=== PATIENT | female | born 2000 | race Caucasian/White ===

== ENCOUNTER 2020-09-22 14:23 | Emergency (ER) | payer SELFPAY ==
[~2020-09-22] VITALS: Ht 160 cm; Wt 80.0 kg
[2020-09-22 14:25] VITALS: BP 134/88
[2020-09-22 14:50] LABS: BASOPHILS % 0.2 % (0.0-2.0); EOSINOPHILS % 0.1 % (0.0-5.0); HEMATOCRIT. 32.9 % (36.0-48.0); HEMOGLOBIN. 11.2 g/dL (12.0-16.0); LYMPHOCYTES % 11.4 % (20.0-50.0); MEAN CORPUSCULAR HEMOGLOBIN 29.1 pg (28.0-32.0); MEAN CORPUSCULAR VOLUME 85.8 fL (81.0-99.0); NEUTROPHILS % 84.3 % (40.0-76.0); PLATELET 296 x1000/uL (130-400); RED BLOOD CELL COUNT 3.84 mill/uL (4.2-5.4); RED CELL DISTRIBUTION WIDTH 15.5 % (11.6-14.6)
[2020-09-22 14:58] LABS: CHLORIDE 105 mEq/L (98-107)
[2020-09-22 15:00] LABS: PROTHROMBIN TIME 10.3 sec (9.6-11.0)
[2020-09-22] MEDS ORDERED: SODIUM CHLORIDE 0.9% 1,000 ML IV ONE (15:00)
[2020-09-22] MEDS ORDERED: ONDANSETRON HCL 4MG/2ML INJ IV ONE (15:00)
[2020-09-22 15:07] LABS: HCG SCREEN POSITIVE
== END 2020-09-22 15:52 | disposition left against medical advice (07) ==
LOC: ER 14:23
DX: R11.10 Vomiting, unspecified (principal); Z32.01 Encounter for pregnancy test, result positive
CPT/HCPCS: 36415; 80053; 84703; 85025; 99283

== ENCOUNTER 2020-11-02 08:21 | Emergency (ER) | payer SELFPAY ==
[~2020-11-02] VITALS: Ht 160 cm; Wt 68.0 kg
[2020-11-02] MEDS ORDERED: ONDANSETRON HCL 4MG/2ML INJ IV ONE ×2 (09:30→10:45)
[2020-11-02 10:16] LABS: HEMATOCRIT. 34.6 % (36.0-48.0); HEMOGLOBIN. 11.8 g/dL (12.0-16.0); MEAN CORPUSCULAR HEMOGLOBIN 29.9 pg (28.0-32.0); MEAN CORPUSCULAR VOLUME 88.2 fL (81.0-99.0); MEAN PLATELET VOLUME 10.6 fl (7.4-10.4); PLATELET 265 x1000/uL (130-400); RED BLOOD CELL COUNT 3.93 mill/uL (4.2-5.4); RED CELL DISTRIBUTION WIDTH 15.5 % (11.6-14.6)
[2020-11-02 10:23] LABS: CHLORIDE 105 mEq/L (98-107)
[2020-11-02 10:49] LABS: B-HCG QUANTITATIVE 19575 mIU/mL (<3)
[2020-11-02] MEDS ORDERED: SODIUM CHLORIDE 0.9% 1,000 ML IV ONE (11:00)
[2020-11-02 11:01] LABS: CLARITY URINE CLEAR (CLEAR); COLOR URINE YELLOW (YELLOW); KETONES URINE 1+ (NEGATIVE); LEUKOCYTE ESTERASE URINE NEGATIVE (NEGATIVE); NITRITE URINE NEGATIVE (NEGATIVE); OCCULT BLOOD URINE NEGATIVE (NEGATIVE); PH URINE >=9.0 (4.5-8.0); PROTEIN URINE TRACE (NEGATIVE); SPECIFIC GRAVITY URINE 1.019 (1.005-1.030); UROBILINOGEN URINE 0.2 E.U./dL (0.2-1.0)
[2020-11-02] MEDS ORDERED: ONDA4TAB5 PO (11:43)
[2020-11-02 12:05] LABS: PLATELET ESTIMATE NORMAL
[2020-11-02] MEDS ORDERED: DIPHENHYDRAMINE 50MG/ML VIAL IV ONE (12:30)
[2020-11-02] MEDS ORDERED: METOCLOPRAMIDE HCL 10MG/2ML VIAL IV ONE (12:30)
[2020-11-02 13:00] VITALS: BP 149/74
== END 2020-11-02 13:10 | disposition home or self-care (01) ==
LOC: ER 08:31
DX: O21.2 Late vomiting of pregnancy (principal); Z3A.22 22 weeks gestation of pregnancy
CPT/HCPCS: 36415; 76805; 80053; 81003; 84702; 85025; 86850; 86900; 86901; 96361; 96374; 96375; 96376; 99284; J1200; J2405; J2765; J7030

== ENCOUNTER 2020-12-06 04:35 | Observation (INO) | payer SELFPAY ==
[~2020-12-06] VITALS: Ht 154.9 cm; Wt 65.8 kg
[~2020-12-06 04:35] MED LIST: ONDA4TAB5 PO
[2020-12-06] MEDS ORDERED: LACTATED RINGERS 1,000 ML IV SCH (05:00)
[2020-12-06] MEDS: ONDANSETRON HCL 4MG/2ML INJ IV PRN ×2 (05:35→11:47)
[2020-12-06 05:54] LABS: CLARITY URINE TURBID (CLEAR); COLOR URINE YELLOW (YELLOW); KETONES URINE NEGATIVE (NEGATIVE); LEUKOCYTE ESTERASE URINE 1+ (NEGATIVE); NITRITE URINE NEGATIVE (NEGATIVE); OCCULT BLOOD URINE NEGATIVE (NEGATIVE); PH URINE 8.5 (4.5-8.0); PROTEIN URINE TRACE (NEGATIVE); SPECIFIC GRAVITY URINE 1.014 (1.005-1.030)
[2020-12-06 05:55] LABS: BASOPHILS % 0.1 % (0.0-2.0); EOSINOPHILS % 0.1 % (0.0-5.0); HEMOGLOBIN. 10.2 g/dL (12.0-16.0); LYMPHOCYTES % 12.7 % (20.0-50.0); MEAN CORPUSCULAR HEMOGLOBIN 29.1 pg (28.0-32.0); MEAN CORPUSCULAR VOLUME 85.2 fL (81.0-99.0); MEAN PLATELET VOLUME 10.3 fl (7.4-10.4); MONOCYTES % 4.1 % (2.0-8.0); PLATELET 271 x1000/uL (130-400); RED BLOOD CELL COUNT 3.52 mill/uL (4.2-5.4); RED CELL DISTRIBUTION WIDTH 16.3 % (11.6-14.6)
[2020-12-06 06:02] LABS: CHLORIDE 105 mEq/L (98-107)
[2020-12-06 06:06] LABS: *AMPHETAMINES SCREEN URINE NEGATIVE (NEGATIVE); *BARBITURATES SCREEN URINE NEGATIVE (NEGATIVE); *BENZODIAZEPINES SCREEN URINE NEGATIVE (NEGATIVE); *COCAINE SCREEN URINE NEGATIVE (NEGATIVE)
[2020-12-06 06:07] LABS: METHADONE URINE SCREEN NEGATIVE (NEGATIVE); OPIATES URINE SCREEN NEGATIVE (NEGATIVE); PHENCYCLIDINE URINE SCREEN NEGATIVE (NEGATIVE)
[2020-12-06 06:10] LABS: CANNABINOID URINE SCREEN PRESUMTIVE POSITIVE (NEGATIVE)
[2020-12-06] MEDS ORDERED: KCL 20MEQ/100ML PREMIX 100 ML IV NR ×2 (09:15→10:00)
[2020-12-06] MEDS ORDERED: CITRIC ACID/SODIUM CITRATE SOLN 15ML UDC PO NR (10:00)
[2021-02-02] MEDS ORDERED: IBUP-2030 PO (18:36)
== END 2020-12-06 13:30 | disposition home or self-care (01) ==
LOC: 8 EST LDRP 04:35
PROVIDERS: ADMIT Obstetrics & Gynecology; ATTEND Obstetrics & Gynecology
DX: O21.2 Late vomiting of pregnancy (principal); O99.283 Endocrine, nutritional and metabolic diseases complicating pregnancy, third trimester; E87.6 Hypokalemia; Z3A.28 28 weeks gestation of pregnancy
CPT/HCPCS: 36415; 76805; 76818; 80053; 80305; 81003; 84550; 85025; 96360; 96361; C1893; G0378; J2405; J3480; 80349; 96365; 96366; 99281; J7120

== ENCOUNTER 2021-01-31 20:06 | Inpatient (IN) | payer SELFPAY ==
[~2021-01-31] VITALS: Ht 154.9 cm; Wt 68.0 kg
[2021-01-31] MEDS ORDERED: NALOXONE HCL 0.4 MG/ML 1ML VIAL IM PRN (20:45)
[2021-01-31] MEDS ORDERED: CARBOPROST TROMETHAMINE 250 MCG/ML AMPUL IM PRN (20:45)
[2021-01-31] MEDS ORDERED: METHYLERGONOVINE MALEATE 0.2 MG/ML IM PRN (20:45)
[2021-01-31] MEDS ORDERED: LIDOCAINE HCL 1% 20ML VIAL (Pyxis) INJ INFIL SCH (20:45)
[2021-01-31] MEDS ORDERED: PNV1TABL76 PO (20:46)
[2021-01-31] MEDS: LACTATED RINGERS 1,000 ML IV SCH ×2 (20:55→22:27)
[2021-01-31] MEDS ORDERED: BUTORPHANOL TARTRATE 2 MG/ML VIAL IV PRN (21:00)
[2021-01-31 21:45] LABS: BASOPHILS % 0.2 % (0.0-2.0); EOSINOPHILS % 0.8 % (0.0-5.0); HEMATOCRIT. 29.4 % (36.0-48.0); HEMOGLOBIN. 9.9 g/dL (12.0-16.0); LYMPHOCYTES % 19.4 % (20.0-50.0); MEAN CORPUSCULAR HEMOGLOBIN 27.6 pg (28.0-32.0); MEAN CORPUSCULAR VOLUME 81.8 fL (81.0-99.0); MEAN PLATELET VOLUME 10.5 fl (7.4-10.4); MONOCYTES % 5.4 % (2.0-8.0); NEUTROPHILS % 74.2 % (40.0-76.0); PLATELET 226 x1000/uL (130-400); RED CELL DISTRIBUTION WIDTH 17.8 % (11.6-14.6)
[2021-01-31 21:48] LABS: CLARITY URINE CLOUDY (CLEAR); COLOR URINE YELLOW (YELLOW); KETONES URINE NEGATIVE (NEGATIVE); LEUKOCYTE ESTERASE URINE TRACE (NEGATIVE); NITRITE URINE NEGATIVE (NEGATIVE); OCCULT BLOOD URINE 2+ (NEGATIVE); PROTEIN URINE TRACE (NEGATIVE); SPECIFIC GRAVITY URINE 1.027 (1.005-1.030)
[2021-01-31 21:53] LABS: INR 0.9; PARTIAL THROMBOPLASTIN TIME 30.5 sec (23.4-31.0); PROTHROMBIN TIME 9.4 sec (9.6-11.0)
[2021-01-31] MEDS ORDERED: PENICILLIN G POTASSIUM 5 MMU in DEXT 5% WATER 100 ML IV NR (22:00)
[2021-01-31 22:14] LABS: *BARBITURATES SCREEN URINE NEGATIVE (NEGATIVE); *BENZODIAZEPINES SCREEN URINE NEGATIVE (NEGATIVE); *COCAINE SCREEN URINE NEGATIVE (NEGATIVE); METHADONE URINE SCREEN NEGATIVE (NEGATIVE); OPIATES URINE SCREEN NEGATIVE (NEGATIVE)
[2021-01-31 22:15] LABS: PHENCYCLIDINE URINE SCREEN NEGATIVE (NEGATIVE)
[2021-01-31 22:22] LABS: CANNABINOID URINE SCREEN PRESUMTIVE POSITIVE (NEGATIVE)
[2021-01-31 22:25] LABS: *AMPHETAMINES SCREEN URINE PRESUMTIVE POSITIVE (NEGATIVE)
[2021-01-31 22:34] LABS: HEPATITIS B SURFACE ANTIGEN NEGATIVE
[2021-01-31] MEDS: DEXT 5%/LR + PITOCIN 20UNITS/L 1,000 ML IV SCH (22:38)
[2021-01-31] MEDS ORDERED: ROPIVACAINE HCL/PF EPIDURAL 200 ML EPI SCH (22:45)
[2021-01-31] MEDS ORDERED: FENTANYL CITRATE/PF 50MCG/ML 2ML VIAL ONE (22:56)
[2021-01-31] MEDS ORDERED: ROPIVACAINE HCL/PF EPIDURAL 200 ML EPI ONE (22:56)
[2021-02-01] MEDS ORDERED: PENICILLIN G POTASSIUM 2.5 MMU in DEXTROSE 5% WATER 50 ML IV SCH (02:00)
[2021-02-01] MEDS: DEXT 5%/LR + PITOCIN 20UNITS/L 1,000 ML IV SCH (02:55)
[2021-02-01] MEDS ORDERED: BENZOCAINE/LANOLIN/ALOE VERA SPRAY TOP PRN (03:15)
[2021-02-01] MEDS ORDERED: DEXT 5%/LR + PITOCIN 20UNITS/L 1,000 ML IV SCH (03:15)
[2021-02-01] MEDS ORDERED: BISACODYL 10MG SUPP PR PRN (03:15)
[2021-02-01] MEDS ORDERED: LANOLIN OINT 7GM TUBE TOP PRN (03:15)
[2021-02-01] MEDS ORDERED: DIPHENHYDRAMINE 25MG CAPSULE PO PRN (03:15)
[2021-02-01] MEDS ORDERED: IBUPROFEN 400MG TABLET PO PRN (03:15)
[2021-02-01] MEDS ORDERED: HEMORRHOIDAL SUPP PR PRN (03:15)
[2021-02-01] MEDS ORDERED: RHO(D) IMMUNE GLOBULIN 300 MCG/SYR IM PRN (03:15)
[2021-02-01 03:40] VITALS: BP 136/94
[2021-02-01] MEDS: IBUPROFEN 800MG TABLET PO PRN ×3 (03:43→15:45)
[2021-02-01 04:10] VITALS: BP 139/89
[2021-02-01 04:45] VITALS: BP 125/81
[2021-02-01 07:30] VITALS: BP 147/88
[2021-02-01] MEDS: PRENATAL VIT/FE FUMARATE/FA TABLET PO SCH (08:12)
[2021-02-01] MEDS: MAGNESIUM/ALUMINUM HYDROXIDE/SIMETHICONE 30ML UDC PO SCH ×3 (08:12→21:11)
[2021-02-01] MEDS: SIMETHICONE 80MG TABLET CHEW PO SCH ×4 (08:12→21:11)
[2021-02-01 16:01] VITALS: BP 148/78
[2021-02-01] MEDS: ACETAMINOPHEN WITH CODEINE 300/30MG TABLET PO PRN ×2 (18:12→21:12)
[2021-02-01 20:00] VITALS: BP 100/62
[2021-02-01] MEDS ORDERED: DOCUSATE SODIUM 100MG CAPSULE PO SCH (21:00)
[2021-02-02 04:00] VITALS: BP 124/74
[2021-02-02] MEDS: ACETAMINOPHEN WITH CODEINE 300/30MG TABLET PO PRN ×2 (04:05→16:28)
[2021-02-02 06:40] LABS: BASOPHILS % 0.4 % (0.0-2.0); EOSINOPHILS % 1.1 % (0.0-5.0); HEMATOCRIT. 29.7 % (36.0-48.0); HEMOGLOBIN. 9.6 g/dL (12.0-16.0); LYMPHOCYTES % 35.7 % (20.0-50.0); MEAN CORPUSCULAR HEMOGLOBIN 26.7 pg (28.0-32.0); MEAN CORPUSCULAR VOLUME 82.5 fL (81.0-99.0); MEAN PLATELET VOLUME 10.2 fl (7.4-10.4); MONOCYTES % 6.6 % (2.0-8.0); NEUTROPHILS % 56.2 % (40.0-76.0); PLATELET 222 x1000/uL (130-400); RED CELL DISTRIBUTION WIDTH 17.7 % (11.6-14.6)
[2021-02-02] MEDS: FERROUS SULFATE 325MG TABLET PO SCH ×2 (07:30→12:53)
[2021-02-02] MEDS: MAGNESIUM/ALUMINUM HYDROXIDE/SIMETHICONE 30ML UDC PO SCH ×2 (07:30→12:30)
[2021-02-02 08:00] VITALS: BP 131/77
[2021-02-02] MEDS: SIMETHICONE 80MG TABLET CHEW PO SCH ×2 (08:00→13:00)
[2021-02-02] MEDS: PRENATAL VIT/FE FUMARATE/FA TABLET PO SCH (09:00)
[2021-02-02] MEDS: IBUPROFEN 800MG TABLET PO PRN (12:52)
[2021-02-02 15:12] VITALS: BP 128/75
[2021-02-02] MEDS ORDERED: IBUP-2030 PO (18:36)
[2021-02-08 13:09] LABS: AMPHETAMINE CONF URINE Positive (.); CANNABINOID CONFIRMATION URINE Positive (.)
== END 2021-02-02 19:55 | disposition home or self-care (01) | DRG 560 ==
LOC: OBSVTOIN 20:06 → 8 EST LDRP 20:06 → 8EST 02-01 04:46
PROVIDERS: ADMIT Obstetrics & Gynecology; ATTEND Obstetrics & Gynecology
PROC: 10E0XZZ Delivery of Products of Conception, External Approach (ICD-10-PCS; principal; 2021-02-01)
PROC: 3E0R3BZ Introduction of Anesthetic Agent into Spinal Canal, Percutaneous Approach (ICD-10-PCS; 2021-02-01)
PROC: 00HU33Z Insertion of Infusion Device into Spinal Canal, Percutaneous Approach (ICD-10-PCS; 2021-02-01)
DX: O98.52 Other viral diseases complicating childbirth (principal); Z37.0 Single live birth; U07.1 COVID-19; D62 Acute posthemorrhagic anemia; O90.81 Anemia of the puerperium; O69.81X0 Labor and delivery complicated by cord around neck, without compression, not applicable or unspecified; Z3A.36 36 weeks gestation of pregnancy
CPT/HCPCS: 36415; 80305; 80349; 81003; 85025; 86592; 86703; 86762; 86850; 86900; 87340; 87426; 88307; 99281; G0378; J0595; J2540; J2590; J2795; J3010; J7060; U0003; U0005; A4315

== ENCOUNTER 2021-08-04 22:57 | Emergency (ER) | payer MEDICAID ==
[~2021-08-04] VITALS: Ht 154.9 cm; Wt 50.0 kg
[~2021-08-04 22:57] MED LIST changes: +IBUP-2030 PO; +PNV1TABL76 PO
[2021-08-05] MEDS ORDERED: ONDANSETRON HCL 4MG/2ML INJ IV STA (00:13)
[2021-08-05] MEDS ORDERED: SODIUM CHLORIDE 0.9% 1,000 ML IV ONE (00:15)
[2021-08-05 00:30] LABS: BASOPHILS % 0.1 % (0.0-2.0); CHLORIDE 107 mEq/L (98-107); EOSINOPHILS % 0.6 % (0.0-5.0); HEMOGLOBIN. 12.8 g/dL (12.0-16.0); LYMPHOCYTES % 11.7 % (20.0-50.0); MEAN CORPUSCULAR HEMOGLOBIN 28.6 pg (28.0-32.0); MEAN CORPUSCULAR VOLUME 87.1 fL (81.0-99.0); MEAN PLATELET VOLUME 10.6 fl (7.4-10.4); MONOCYTES % 2.8 % (2.0-8.0); NEUTROPHILS % 84.8 % (40.0-76.0); PLATELET 296 x1000/uL (130-400); RED BLOOD CELL COUNT 4.47 mill/uL (4.2-5.4); RED CELL DISTRIBUTION WIDTH 17.1 % (11.6-14.6)
[2021-08-05 00:55] LABS: HCG SCREEN NEGATIVE
[2021-08-05 01:03] LABS: CLARITY URINE CLOUDY (CLEAR); COLOR URINE YELLOW (YELLOW); KETONES URINE TRACE (NEGATIVE); LEUKOCYTE ESTERASE URINE NEGATIVE (NEGATIVE); NITRITE URINE NEGATIVE (NEGATIVE); OCCULT BLOOD URINE 1+ (NEGATIVE); PH URINE >=9.0 (4.5-8.0); PROTEIN URINE 1+ (NEGATIVE); SPECIFIC GRAVITY URINE 1.019 (1.005-1.030)
[2021-08-05] MEDS ORDERED: HALOPERIDOL LACTATE 5MG/ML VIAL IM ONE (02:45)
[2021-08-05 04:42] VITALS: BP 149/91
== END 2021-08-05 04:46 | disposition home or self-care (01) ==
LOC: ER 22:57
DX: F12.188 Cannabis abuse with other cannabis-induced disorder (principal); R03.0 Elevated blood-pressure reading, without diagnosis of hypertension
CPT/HCPCS: 36415; 71045; 80053; 81003; 83690; 84703; 85025; 96372; 96374; 99284; J1630; J2405; J7030

== ENCOUNTER 2021-08-12 05:53 | Emergency (ER) | payer MEDICAID, OTHER ==
[~2021-08-12] VITALS: Ht 165.1 cm; Wt 130.0 kg
[2021-08-12] MEDS ORDERED: ONDANSETRON 4MG ODT PO STA (06:04)
[2021-08-12 06:45] LABS: BASOPHILS % 0.4 % (0.0-2.0); CHLORIDE 105 mEq/L (98-107); EOSINOPHILS % 0.2 % (0.0-5.0); HEMOGLOBIN. 13.1 g/dL (12.0-16.0); LYMPHOCYTES % 10.2 % (20.0-50.0); MEAN CORPUSCULAR VOLUME 86.1 fL (81.0-99.0); MEAN PLATELET VOLUME 10.5 fl (7.4-10.4); MONOCYTES % 1.7 % (2.0-8.0); NEUTROPHILS % 87.5 % (40.0-76.0); PLATELET 248 x1000/uL (130-400); RED BLOOD CELL COUNT 4.53 mill/uL (4.2-5.4); RED CELL DISTRIBUTION WIDTH 17.1 % (11.6-14.6)
[2021-08-12 07:01] LABS: HCG SCREEN NEGATIVE
[2021-08-12] MEDS ORDERED: ONDA4TAB5 PO (08:15)
[2021-08-12] MEDS ORDERED: ONDANSETRON HCL 4MG TABLET PO ONE (08:30)
[2021-08-12 08:51] VITALS: BP 132/86
[2021-08-12 09:06] LABS: *AMPHETAMINES SCREEN URINE NEGATIVE (NEGATIVE); *BENZODIAZEPINES SCREEN URINE NEGATIVE (NEGATIVE); *COCAINE SCREEN URINE NEGATIVE (NEGATIVE)
[2021-08-12 09:07] LABS: OPIATES URINE SCREEN NEGATIVE (NEGATIVE); PHENCYCLIDINE URINE SCREEN NEGATIVE (NEGATIVE)
[2021-08-12 09:11] LABS: CANNABINOID URINE SCREEN PRESUMTIVE POSITIVE (NEGATIVE)
[2021-08-13 22:12] LABS: *BARBITURATES SCREEN URINE NEGATIVE (NEGATIVE); METHADONE URINE SCREEN NEGATIVE (NEGATIVE)
== END 2021-08-12 08:52 | disposition home or self-care (01) ==
LOC: ER 05:53
DX: R11.2 Nausea with vomiting, unspecified (principal); F12.10 Cannabis abuse, uncomplicated
CPT/HCPCS: 36415; 74018; 80053; 80305; 83690; 84703; 85025; 99284; Q0162

== ENCOUNTER 2022-02-05 15:38 | Emergency (ER) | payer MEDICAID, OTHER ==
[~2022-02-05] VITALS: Ht 154.9 cm; Wt 55.0 kg
[2022-02-05 21:37] VITALS: BP 164/110
[2022-02-05] MEDS ORDERED: ONDANSETRON HCL 4MG/2ML INJ IV STA (21:49)
[2022-02-05] MEDS ORDERED: SODIUM CHLORIDE 0.9% 1,000 ML IV ONE (22:00)
[2022-02-05] MEDS ORDERED: ACETAMINOPHEN 325MG TABLET PO ONE (22:00)
[2022-02-05 22:12] LABS: HEMATOCRIT. 37.6 % (36.0-48.0); HEMOGLOBIN. 12.5 g/dL (12.0-16.0); MEAN CORPUSCULAR HEMOGLOBIN 29.7 pg (28.0-32.0); MEAN CORPUSCULAR VOLUME 89.5 fL (81.0-99.0); MEAN PLATELET VOLUME 10.3 fl (7.4-10.4); PLATELET 282 x1000/uL (130-400); RED CELL DISTRIBUTION WIDTH 14.3 % (11.6-14.6)
[2022-02-05 22:22] LABS: HCG SCREEN NEGATIVE
[2022-02-05 22:26] LABS: CHLORIDE 97 mEq/L (98-107)
[2022-02-05 22:34] LABS: *AMPHETAMINES SCREEN URINE NEGATIVE (NEGATIVE); *BARBITURATES SCREEN URINE NEGATIVE (NEGATIVE); *BENZODIAZEPINES SCREEN URINE NEGATIVE (NEGATIVE); *COCAINE SCREEN URINE NEGATIVE (NEGATIVE); METHADONE URINE SCREEN NEGATIVE (NEGATIVE); OPIATES URINE SCREEN NEGATIVE (NEGATIVE); PHENCYCLIDINE URINE SCREEN NEGATIVE (NEGATIVE)
[2022-02-05 22:34] LABS: ETHANOL BLOOD < 10 mg/dL
[2022-02-05 22:38] LABS: CANNABINOID URINE SCREEN PRESUMTIVE POSITIVE (NEGATIVE)
[2022-02-05] MEDS ORDERED: ONDA4TAB11 PO (23:05)
[2022-02-05] MEDS ORDERED: ONDANSETRON HCL 4MG/2ML INJ IV ONE (23:15)
[2022-02-05 23:26] LABS: PLATELET ESTIMATE NORMAL
== END 2022-02-05 23:24 | disposition home or self-care (01) ==
LOC: ER 15:38
DX: R42 Dizziness and giddiness (principal); R11.2 Nausea with vomiting, unspecified; F12.10 Cannabis abuse, uncomplicated
CPT/HCPCS: 36415; 80053; 80305; 80320; 83690; 84703; 85025; 96361; 96374; 96376; 99284; J2405; J7030; G0480

== ENCOUNTER 2022-03-10 13:19 | Emergency (ER) | payer MEDICAID, OTHER ==
[~2022-03-10] VITALS: Ht 152.4 cm; Wt 46.0 kg
[~2022-03-10 13:19] MED LIST changes: +ONDA4TAB11 PO
[2022-03-10] MEDS ORDERED: KETOROLAC 30MG/ML VIAL IV STA (15:55)
[2022-03-10] MEDS ORDERED: ONDANSETRON HCL 4MG/2ML INJ IV STA (15:55)
[2022-03-10] MEDS ORDERED: SODIUM CHLORIDE 0.9% 1,000 ML IV ONE (16:00)
[2022-03-10 16:23] LABS: HEMATOCRIT. 38.4 % (36.0-48.0); MEAN CORPUSCULAR HEMOGLOBIN 30.5 pg (28.0-32.0); MEAN CORPUSCULAR VOLUME 89.9 fL (81.0-99.0); MEAN PLATELET VOLUME 9.6 fl (7.4-10.4); PLATELET 279 x1000/uL (130-400); RED BLOOD CELL COUNT 4.27 mill/uL (4.2-5.4); RED CELL DISTRIBUTION WIDTH 14.7 % (11.6-14.6)
[2022-03-10 16:31] LABS: CHLORIDE 101 mEq/L (98-107)
[2022-03-10 16:35] VITALS: BP 126/103
[2022-03-10 16:37] LABS: HCG SCREEN NEGATIVE
[2022-03-10 16:55] LABS: CLARITY URINE CLEAR (CLEAR); COLOR URINE YELLOW (YELLOW); KETONES URINE NEGATIVE (NEGATIVE); LEUKOCYTE ESTERASE URINE NEGATIVE (NEGATIVE); NITRITE URINE NEGATIVE (NEGATIVE); OCCULT BLOOD URINE NEGATIVE (NEGATIVE); PROTEIN URINE NEGATIVE (NEGATIVE); UROBILINOGEN URINE 0.2 E.U./dL (0.2-1.0)
[2022-03-10 18:29] LABS: PLATELET ESTIMATE NORMAL
[2022-03-10] MEDS ORDERED: OMEP40CA20 MT (19:00)
[2022-03-10] MEDS ORDERED: ONDA4TAB50 MT (19:00)
[2022-03-10] MEDS ORDERED: METOCLOPRAMIDE HCL 10MG/2ML VIAL IV ONE (19:00)
== END 2022-03-10 19:25 | disposition home or self-care (01) ==
LOC: ER 13:19
DX: R10.33 Periumbilical pain (principal); R11.2 Nausea with vomiting, unspecified; F12.10 Cannabis abuse, uncomplicated
CPT/HCPCS: 36415; 74176; 80053; 81003; 81025; 83690; 84703; 85025; 96361; 96374; 96375; 99284; J1885; J2405; J2765; J7030

== ENCOUNTER 2022-06-11 10:45 | Emergency (ER) | payer MEDICAID ==
[~2022-06-11] VITALS: Ht 162.6 cm; Wt 55.0 kg
[~2022-06-11 10:45] MED LIST changes: +OMEP40CA20 MT; +ONDA4TAB50 MT
[2022-06-11 10:49] VITALS: BP 148/104
[2022-06-11] MEDS ORDERED: ONDANSETRON HCL 4MG/2ML INJ IV STA (13:14)
[2022-06-11] MEDS ORDERED: KETOROLAC 30MG/ML VIAL IV STA (13:14)
[2022-06-11 15:46] LABS: CLARITY URINE CLEAR (CLEAR); COLOR URINE YELLOW (YELLOW); KETONES URINE TRACE (NEGATIVE); LEUKOCYTE ESTERASE URINE NEGATIVE (NEGATIVE); NITRITE URINE NEGATIVE (NEGATIVE); OCCULT BLOOD URINE 2+ (NEGATIVE); PH URINE 7.5 (4.5-8.0); PROTEIN URINE TRACE (NEGATIVE); SPECIFIC GRAVITY URINE 1.023 (1.005-1.030); UROBILINOGEN URINE 0.2 E.U./dL (0.2-1.0)
[2022-06-11 15:47] LABS: CHLORIDE 106 mEq/L (98-107)
[2022-06-11 16:00] LABS: HCG SCREEN NEGATIVE; HEMATOCRIT. 35.5 % (36.0-48.0); HEMOGLOBIN. 12.2 g/dL (12.0-16.0); MEAN CORPUSCULAR HEMOGLOBIN 30.7 pg (28.0-32.0); MEAN CORPUSCULAR VOLUME 89.7 fL (81.0-99.0); MEAN PLATELET VOLUME 10.8 fl (7.4-10.4); PLATELET 296 x1000/uL (130-400); RED BLOOD CELL COUNT 3.96 mill/uL (4.2-5.4); RED CELL DISTRIBUTION WIDTH 14.7 % (11.6-14.6)
[2022-06-11 16:01] LABS: *AMPHETAMINES SCREEN URINE NEGATIVE (NEGATIVE); *BARBITURATES SCREEN URINE NEGATIVE (NEGATIVE); *BENZODIAZEPINES SCREEN URINE NEGATIVE (NEGATIVE); *COCAINE SCREEN URINE NEGATIVE (NEGATIVE); METHADONE URINE SCREEN NEGATIVE (NEGATIVE); OPIATES URINE SCREEN NEGATIVE (NEGATIVE); PHENCYCLIDINE URINE SCREEN NEGATIVE (NEGATIVE)
[2022-06-11 16:13] LABS: CANNABINOID URINE SCREEN PRESUMTIVE POSITIVE (NEGATIVE)
[2022-06-11] MEDS ORDERED: METOCLOPRAMIDE HCL 10MG/2ML VIAL IV ONE (16:15)
[2022-06-11] MEDS: HALOPERIDOL LACTATE 5MG/ML VIAL IM ONE ×2 (16:24→16:29)
[2022-06-11] MEDS ORDERED: ONDA4TAB11 PO (16:27)
[2022-06-11 18:28] LABS: PLATELET ESTIMATE NORMAL
== END 2022-06-11 16:37 | disposition home or self-care (01) ==
LOC: ER 11:37
DX: R10.33 Periumbilical pain (principal); R11.2 Nausea with vomiting, unspecified; F12.10 Cannabis abuse, uncomplicated
CPT/HCPCS: 36415; 80053; 80305; 81003; 81025; 83690; 84703; 85025; 96372; 96374; 96375; 99284; J1630; J1885; J2405; J2765; Z7610

== ENCOUNTER 2022-07-14 11:10 | Emergency (ER) | payer MEDICAID ==
[~2022-07-14] VITALS: Ht 149.9 cm; Wt 54.0 kg
[2022-07-14 11:26] VITALS: BP 158/123
[2022-07-14] MEDS ORDERED: ACETAMINOPHEN 325MG TABLET PO ONE (13:00)
[2022-07-14] MEDS ORDERED: ONDANSETRON 4MG ODT PO ONE (13:00)
[2022-07-14] MEDS ORDERED: SODIUM CHLORIDE 0.9% 1,000 ML IV ONE (13:30)
[2022-07-14] MEDS ORDERED: ONDANSETRON HCL 4MG/2ML INJ IV ONE (13:30)
[2022-07-14 14:19] LABS: HEMATOCRIT. 38.1 % (36.0-48.0); HEMOGLOBIN. 12.9 g/dL (12.0-16.0); MEAN CORPUSCULAR HEMOGLOBIN 30.2 pg (28.0-32.0); MEAN CORPUSCULAR VOLUME 89.2 fL (81.0-99.0); MEAN PLATELET VOLUME 10.3 fl (7.4-10.4); PLATELET 238 x1000/uL (130-400); RED BLOOD CELL COUNT 4.27 mill/uL (4.2-5.4); RED CELL DISTRIBUTION WIDTH 14.3 % (11.6-14.6)
[2022-07-14 14:25] LABS: CHLORIDE 101 mEq/L (98-107)
[2022-07-14 14:27] LABS: CLARITY URINE CLEAR (CLEAR); COLOR URINE YELLOW (YELLOW); KETONES URINE 1+ (NEGATIVE); LEUKOCYTE ESTERASE URINE NEGATIVE (NEGATIVE); NITRITE URINE NEGATIVE (NEGATIVE); OCCULT BLOOD URINE TRACE (NEGATIVE); PH URINE 8.5 (4.5-8.0); PROTEIN URINE TRACE (NEGATIVE); SPECIFIC GRAVITY URINE 1.025 (1.005-1.030); UROBILINOGEN URINE 0.2 E.U./dL (0.2-1.0)
[2022-07-14] MEDS ORDERED: HALOPERIDOL LACTATE 5MG/ML VIAL IM ONE (14:45)
[2022-07-14 15:09] LABS: HCG SCREEN NEGATIVE
[2022-07-14 15:25] LABS: PLATELET ESTIMATE NORMAL
== END 2022-07-14 15:50 | disposition home or self-care (01) ==
LOC: ER 11:10
DX: R11.10 Vomiting, unspecified (principal); F12.90 Cannabis use, unspecified, uncomplicated; Z97.5 Presence of (intrauterine) contraceptive device; Z20.822 Contact with and (suspected) exposure to COVID-19
CPT/HCPCS: 36415; 80053; 81003; 81025; 83690; 84703; 85025; 87426; 96361; 96372; 96374; 99283; J1630; J2405; J7030; Q0162

== ENCOUNTER 2022-12-26 18:08 | Emergency (ER) | payer MEDICAID ==
[~2022-12-26] VITALS: Ht 154.9 cm; Wt 54.0 kg
[2022-12-26 18:18] VITALS: BP 139/97; O2SAT 98
[2022-12-26 18:45] LABS: BASOPHILS % 0.3 % (0.0-2.0); EOSINOPHILS % 1.2 % (0.0-5.0); HEMATOCRIT. 38.7 % (36.0-48.0); LYMPHOCYTES % 21.5 % (20.0-50.0); MEAN CORPUSCULAR HEMOGLOBIN 30.2 pg (28.0-32.0); MEAN CORPUSCULAR VOLUME 89.8 fL (81.0-99.0); MEAN PLATELET VOLUME 9.9 fl (7.4-10.4); MONOCYTES % 5.3 % (2.0-8.0); NEUTROPHILS % 71.7 % (40.0-76.0); PLATELET 310 x1000/uL (130-400); RED BLOOD CELL COUNT 4.32 mill/uL (4.2-5.4); RED CELL DISTRIBUTION WIDTH 14.8 % (11.6-14.6)
[2022-12-26 18:47] LABS: CLARITY URINE TURBID (CLEAR); COLOR URINE YELLOW (YELLOW); KETONES URINE NEGATIVE (NEGATIVE); LEUKOCYTE ESTERASE URINE 1+ (NEGATIVE); NITRITE URINE NEGATIVE (NEGATIVE); OCCULT BLOOD URINE 2+ (NEGATIVE); PH URINE >=9.0 (4.5-8.0); PROTEIN URINE 2+ (NEGATIVE); SPECIFIC GRAVITY URINE 1.025 (1.005-1.030)
[2022-12-26 18:54] LABS: CHLORIDE 105 mEq/L (98-107)
[2022-12-26] MEDS ORDERED: SODIUM CHLORIDE 0.9% 1,000 ML IV ONE (21:00)
[2022-12-26] MEDS ORDERED: HALOPERIDOL LACTATE 5MG/ML VIAL IM ONE ×2 (21:00→21:30)
[2022-12-26] MEDS ORDERED: METOCLOPRAMIDE HCL 10MG/2ML VIAL IV ONE (22:30)
[2022-12-26] MEDS ORDERED: ONDANSETRON HCL 4MG/2ML INJ IV ONE (22:30)
[2022-12-27] MEDS ORDERED: ONDA4TAB50 MT (00:17)
[2022-12-27] MEDS ORDERED: CEPH500C2 MT (00:20)
[2022-12-27 00:42] VITALS: PULSE 93; RESP 20; TEMP 98.6
== END 2022-12-27 00:44 | disposition home or self-care (01) ==
LOC: ER 18:08
DX: R19.7 Diarrhea, unspecified (principal); R10.13 Epigastric pain; F12.10 Cannabis abuse, uncomplicated
CPT/HCPCS: 80053; 81003; 81025; 83690; 85025; 36415; 96361; 96372; 96374; 99284; J1630; J2765; J2405; J7030; Z7610

== ENCOUNTER 2023-01-24 05:32 | Emergency (ER) | payer MEDICAID ==
[~2023-01-24] VITALS: Ht 160 cm; Wt 55.0 kg
[~2023-01-24 05:32] MED LIST changes: +CEPH500C2 MT; -IBUP-2030 PO; -OMEP40CA20 MT; -ONDA4TAB11 PO; -ONDA4TAB5 PO; -PNV1TABL76 PO
[2023-01-24 05:33] VITALS: O2SAT 99
[2023-01-24] MEDS ORDERED: ONDANSETRON HCL 4MG/2ML INJ IV STA ×2 (06:06→08:11)
[2023-01-24] MEDS ORDERED: SODIUM CHLORIDE 0.9% 1,000 ML IV ONE (06:15)
[2023-01-24 06:51] LABS: HEMATOCRIT. 39.7 % (36.0-48.0); MEAN CORPUSCULAR HEMOGLOBIN 30.3 pg (28.0-32.0); MEAN CORPUSCULAR HGB CONC 32.8 g/dL (31.0-37.0); MEAN CORPUSCULAR VOLUME 92.3 fL (81.0-99.0); MEAN PLATELET VOLUME 10.4 fl (7.4-10.4); PLATELET 302 x1000/uL (130-400); RED BLOOD CELL COUNT 4.31 mill/uL (4.2-5.4); RED CELL DISTRIBUTION WIDTH 15.5 % (11.6-14.6); WHITE BLOOD COUNT 11.6 x1000/uL (4.5-11.0)
[2023-01-24 06:54] LABS: DIFFERENTIAL COMMENT 1
[2023-01-24 07:02] LABS: CHLORIDE 101 mEq/L (98-107); INDEX HEMOLYSI 1 (1-3); INDEX ICTERIC 1 (1-4); INDEX LIPEMIC 1 (1-3); POTASSIUM 3.2 mEq/L (3.5-5.1); SODIUM 133 mEq/L (136-145)
[2023-01-24 07:10] LABS: HCG SCREEN NEGATIVE
[2023-01-24 07:14] LABS: ALANINE AMINOTRANSFERASE 24 IU/L (13-61); ALBUMIN 4.4 g/dL (3.4-5.0); ASPARTATE AMINOTRANSFERASE 19 IU/L (15-37); BILIRUBIN TOTAL 0.6 mg/dL (0.1-1.0); CALCIUM 9.3 mg/dL (8.5-10.1); CARBON DIOXIDE 22 mEq/L (21-32); CREATININE 0.5 mg/dL (0.6-1.3); ETHANOL BLOOD < 10 mg/dL (-10); GLUCOSE 163 mg/dL (70-105); PROTEIN TOTAL 8.3 g/dL (6.0-8.3); UREA NITROGEN BLOOD 5 mg/dL (7-21)
[2023-01-24] MEDS ORDERED: KETOROLAC 30MG/ML VIAL IV STA (08:11)
[2023-01-24] MEDS ORDERED: POTASSIUM CHLORIDE 20MEQ TABLET SR PO ONE (09:30)
[2023-01-24] MEDS ORDERED: HALOPERIDOL LACTATE 5MG/ML VIAL IM ONE (09:30)
[2023-01-24] MEDS ORDERED: ONDA4TAB50 MT (09:45)
[2023-01-24 10:06] VITALS: BP 132/88; PULSE 70; RESP 17; TEMP 98.1
[2023-01-24 16:11] LABS: ANISOCYTOSIS 1+; PLATELET ESTIMATE NORMAL
== END 2023-01-24 10:32 | disposition home or self-care (01) ==
LOC: ER 05:32
DX: R11.2 Nausea with vomiting, unspecified (principal); F12.10 Cannabis abuse, uncomplicated
CPT/HCPCS: 80053; 80320; 84703; 83690; 85025; 36415; 74176; 96361; 96372; 96374; 96375; 96376; 99285; J1630; J1885; J2405; J7030; Z7610; G0480

== ENCOUNTER 2023-07-29 19:08 | Emergency (ER) | payer MEDICAID, OTHER ==
[~2023-07-29] VITALS: Ht 160 cm; Wt 61.0 kg
[2023-07-29 19:18] VITALS: BP 134/104; PULSE 90; RESP 18; TEMP 99.2; O2SAT 99
[2023-07-29] MEDS ORDERED: MAGNESIUM/ALUMINUM HYDROXIDE/SIMETHICONE 30ML UDC PO STA (19:23)
[2023-07-29] MEDS ORDERED: ONDANSETRON 4MG ODT PO STA (19:23)
[2023-07-29 20:22] LABS: BASOPHILS % 0.3 % (0.0-2.0); EOSINOPHILS % 0.6 % (0.0-5.0); HEMATOCRIT. 39.9 % (36.0-48.0); HEMOGLOBIN. 13.4 g/dL (12.0-16.0); LYMPHOCYTES % 10.4 % (20.0-50.0); MEAN CORPUSCULAR HEMOGLOBIN 31.8 pg (28.0-32.0); MEAN CORPUSCULAR HGB CONC 33.7 g/dL (31.0-37.0); MEAN CORPUSCULAR VOLUME 94.2 fL (81.0-99.0); MONOCYTES % 2.7 % (2.0-8.0); PLATELET 296 x1000/uL (130-400); RED BLOOD CELL COUNT 4.23 mill/uL (4.2-5.4); RED CELL DISTRIBUTION WIDTH 14.4 % (11.6-14.6); WHITE BLOOD COUNT 11.4 x1000/uL (4.5-11.0)
[2023-07-29 20:24] LABS: DIFFERENTIAL COMMENT 1
[2023-07-29 20:31] LABS: HCG SCREEN NEGATIVE
[2023-07-29 20:36] LABS: ALANINE AMINOTRANSFERASE 19 IU/L (10-49); ALBUMIN 4.9 g/dL (3.2-4.8); ASPARTATE AMINOTRANSFERASE 24 IU/L (<34); BILIRUBIN TOTAL 0.4 mg/dL (0.1-1.0); CALCIUM 9.1 mg/dL (8.7-10.4); CARBON DIOXIDE 22 mEq/L (21-32); CHLORIDE 104 mEq/L (98-107); CREATININE 0.5 mg/dL (0.6-1.0); GLUCOSE 128 mg/dL (70-105); POTASSIUM 3.1 mEq/L (3.5-5.1); PROTEIN TOTAL 7.8 g/dL (6.0-8.3); SODIUM 137 mEq/L (136-145); UREA NITROGEN BLOOD 6 mg/dL (9-23)
[2023-07-29 20:47] LABS: ETHANOL BLOOD < 10 mg/dL (<10)
== END 2023-07-29 22:30 | disposition home or self-care (01) ==
LOC: ER 19:08
DX: R11.2 Nausea with vomiting, unspecified (principal); E87.6 Hypokalemia; F12.10 Cannabis abuse, uncomplicated
CPT/HCPCS: 36415; 80053; 80320; 84703; 85025; 93005; 99284; G0480